=== PATIENT | male | born 1995 | race Two or more races ===

== ENCOUNTER 2024-01-03 13:51 | Emergency (ER) | payer OTHER ==
[~2024-01-03] VITALS: Ht 170.2 cm; Wt 64.0 kg
[2024-01-03 13:54] VITALS: O2SAT 98
[2024-01-03] MEDS: SODIUM CHLORIDE 0.9% 500 ML IV ONE (14:30)
[2024-01-03] MEDS ORDERED: DIAZEPAM 5 MG/ML 2ML SYR IV ONE ×3 (15:00→15:45)
[2024-01-03 15:23] LABS: BASOPHILS % 0.8 % (0.0-2.0); EOSINOPHILS % 1.2 % (0.0-5.0); HEMATOCRIT. 42.5 % (42.0-52.0); HEMOGLOBIN. 14.9 g/dL (14.0-18.0); LYMPHOCYTES % 28.3 % (20.0-50.0); MEAN CORPUSCULAR HGB CONC 35.1 g/dL (31.0-37.0); MEAN CORPUSCULAR VOLUME 88.2 fL (80.0-94.0); MEAN PLATELET VOLUME 7.9 fl (7.4-10.4); MONOCYTES % 9.6 % (2.0-8.0); NEUTROPHILS % 60.1 % (40.0-76.0); PLATELET 255 x1000/uL (130-400); RED BLOOD CELL COUNT 4.81 mill/uL (4.7-6.1); RED CELL DISTRIBUTION WIDTH 12.5 % (11.6-14.6); WHITE BLOOD COUNT 6.5 x1000/uL (4.5-11.0)
[2024-01-03 15:39] LABS: ACETAMINOPHEN < 2 ug/mL (10-30); ALANINE AMINOTRANSFERASE 57 IU/L (10-49); ALBUMIN 4.8 g/dL (3.2-4.8); ASPARTATE AMINOTRANSFERASE 28 IU/L (<34); BILIRUBIN TOTAL 0.4 mg/dL (0.1-1.0); CALCIUM 9.1 mg/dL (8.7-10.4); CARBON DIOXIDE 31 mEq/L (21-32); CHLORIDE 102 mEq/L (98-107); GLUCOSE 103 mg/dL (70-105); POTASSIUM 3.8 mEq/L (3.5-5.1); PROTEIN TOTAL 7.3 g/dL (6.0-8.3); SODIUM 140 mEq/L (136-145); UREA NITROGEN BLOOD 12 mg/dL (9-23)
[2024-01-03 15:43] LABS: ETHANOL BLOOD < 10 mg/dL (<10)
[2024-01-03] MEDS ORDERED: BENZTROPINE MESYLATE 1 MG/ML 2ML VIAL IM ONE (15:45)
[2024-01-03] MEDS ORDERED: BENZTROPINE MESYLATE 1 MG/ML 2ML VIAL IV ONE (15:45)
[2024-01-03] MEDS: DIPHENHYDRAMINE 50MG/ML VIAL IV ONE (15:51)
[2024-01-03] MEDS ORDERED: DIAZEPAM 5 MG/ML 2ML SYR IV NR (16:00)
[2024-01-03] MEDS: DIAZEPAM 5 MG/ML 2ML SYR IV ONE (17:51)
[2024-01-03] MEDS: BENZTROPINE MESYLATE 1 MG/ML 2ML VIAL IV NR (17:51)
[2024-01-03 19:00] LABS: CLARITY URINE TURBID (CLEAR); COLOR URINE YELLOW (YELLOW); GLUCOSE URINE NEGATIVE (NEGATIVE); KETONES URINE NEGATIVE (NEGATIVE); LEUKOCYTE ESTERASE URINE NEGATIVE (NEGATIVE); NITRITE URINE NEGATIVE (NEGATIVE); OCCULT BLOOD URINE NEGATIVE (NEGATIVE); PH URINE 7.5 (4.5-8.0); PROTEIN URINE TRACE (NEGATIVE); SPECIFIC GRAVITY URINE 1.022 (1.005-1.030)
[2024-01-03] MEDS: ACETAMINOPHEN 325MG TABLET PO ONE (19:00)
[2024-01-03 19:11] LABS: *AMPHETAMINES SCREEN URINE NEGATIVE (NEGATIVE); *BARBITURATES SCREEN URINE NEGATIVE (NEGATIVE); *BENZODIAZEPINES SCREEN URINE NEGATIVE (NEGATIVE); *COCAINE SCREEN URINE NEGATIVE (NEGATIVE); CANNABINOID URINE SCREEN NEGATIVE (NEGATIVE); ECSTASY MDMA SCREEN URINE NEGATIVE (NEGATIVE); METHADONE URINE SCREEN Neg (NEGATIVE); OPIATES URINE SCREEN NEGATIVE (NEGATIVE); PHENCYCLIDINE URINE SCREEN NEGATIVE (NEGATIVE)
[2024-01-03 19:18] LABS: AMORPHOUS SEDIMENT URINE 4+ /lpf; BACTERIA URINE TRACE; RBC URINE 0-2 /hpf (0-2); SQUAMOUS EPITHELIAL CELL URINE NONE SEEN /lpf (RARE/1+); WBC URINE 0-2 /hpf (0-2)
[2024-01-04] MEDS: IBUPROFEN 400MG TABLET PO ONE (00:45)
[2024-01-04 13:00] VITALS: BP 133/91; PULSE 60; RESP 16; TEMP 97.6
== END 2024-01-04 19:12 | disposition home or self-care (01) ==
LOC: ER 13:51
DX: R45.851 Suicidal ideations (principal); G24.9 Dystonia, unspecified; F41.9 Anxiety disorder, unspecified; F32.9 Major depressive disorder, single episode, unspecified; F17.200 Nicotine dependence, unspecified, uncomplicated; F12.10 Cannabis abuse, uncomplicated
CPT/HCPCS: 80053; 80305; 81003; 80307; 80329; 80320; 85025; 36415; 71045; 93005; 96374; 96375; 99285; J0515; J3360; J1200; J7040; Z7610 ×2; G0480